=== PATIENT | male | born 1985 | race American Indian/Alaskan Native ===

== ENCOUNTER 2024-08-23 05:55 | Emergency (ER) | payer OTHER, MEDICAID ==
[2024-08-23 06:12] LABS: BASOPHILS ABSOLUTE AUTO 0.03 10^3/uL (0.00-0.50); BASOPHILS PERCENT AUTO 0.5 % (0-1); EOSINOPHILS ABSOLUTE AUTO 0.11 10^3/uL (0.00-1.50); EOSINOPHILS PERCENT AUTO 1.8 % (0-6); HEMATOCRIT 45.4 % (42.0-52.0); HEMOGLOBIN 15.4 g/dL (14.0-18.0); IMMATURE GRAN ABSOLUTE AUTO 0.05 10^3/uL (0.00-0.49); IMMATURE GRAN PERCENT AUTO 0.8 % (0.0-4.9); LYMPHOCYTES PERCENT AUTO 33.4 % (24-44); MEAN CORPUSCULAR HEMOGLOBIN 30.1 pg (27.0-32.0); MEAN CORPUSCULAR HGB CONC 33.9 g/dL (32.0-36.0); MEAN CORPUSCULAR VOLUME 88.8 fL (83.0-97.0); MONOCYTES ABSOLUTE AUTO 0.52 10^3/uL (0.00-1.50); MONOCYTES PERCENT AUTO 8.7 % (0-10); NEUTROPHILS ABSOLUTE AUTO 3.28 x10^3/uL (1.80-8.00); NEUTROPHILS PERCENT AUTO 54.8 % (41-71); PLATELET COUNT,PLT 263 10^3/uL (150-400); RED BLOOD CELL COUNT 5.11 x10^6/uL (4.50-6.00)
[2024-08-23 06:24] LABS: ALBUMIN 3.9 g/dL (3.4-5.0); BILIRUBIN TOTAL 0.3 mg/dL (0.0-1.0); CALCIUM 8.8 mg/dL (8.4-10.1); CREATININE 0.9 mg/dL (0.7-1.3); EST CRCL DRUG DOSING (CG) 119.75 mL/min; POTASSIUM,K 4.1 mEq/L (3.5-5.0); PROTEIN TOTAL,TP 7.9 g/dL (6.4-8.2)
[2024-08-23] MEDS ORDERED: Lactated Ringers 1,000 ML IV ONE (06:31)
[2024-08-23 06:38] LABS: INR 0.94 (0.92-1.18); PROTHROMBIN TIME 9.9 SEC (9.3-11.3); PTT,PARTIAL THROMBOPLSTIN TIME 25.1 SEC (20.0-30.0)
[2024-08-23] MEDS: Iopamidol 755 Mg/ML 100 ML Bottle IVPUSH ONE (07:07)
[2024-08-23 07:20] VITALS: BP 119/77; PULSE 82
[2024-08-23 07:44] LABS: AMPHETAMINES,URINE NEGATIVE (NEGATIVE); BARBITURATES,URINE NEGATIVE (NEGATIVE); BENZODIAZEPINE,URINE NEGATIVE (NEGATIVE); MDMA (ECSTASY), URINE NEGATIVE (NEGATIVE); METHADONE,URINE NEGATIVE (NEGATIVE); METHAMPHETAMINES,URINE NEGATIVE (NEGATIVE); OPIATES,URINE NEGATIVE (NEGATIVE); OXYCODONE,URINE NEGATIVE (NEGATIVE); PHENCYCLIDINE,URINE NEGATIVE (NEGATIVE); TCA,URINE NEGATIVE (NEGATIVE)
== END 2024-08-23 08:40 | disposition home or self-care (01) ==
LOC: CC.ED 05:55
DX: S46.912A Strain of unspecified muscle, fascia and tendon at shoulder and upper arm level, left arm, initial encounter (principal); Z88.2 Allergy status to sulfonamides; V89.2XXA Person injured in unspecified motor-vehicle accident, traffic, initial encounter
CPT/HCPCS: 36415; 70450; 71045; 71260; 72125; 72170; 73030-LT; 74177; 80053; 80305-QW; 80307; 82550; 83605; 83735; 84484; 85025; 85610; 85730; 99283; 99284; G0390; Q9967